=== PATIENT | female | born 1975 | race Caucasian/White ===

== ENCOUNTER 2019-03-21 05:48 | Emergency (ER) | payer SELFPAY ==
[~2019-03-21] VITALS: Ht 162.6 cm; Wt 65.9 kg
[2019-03-21 05:52] VITALS: BP 136/75; PULSE 70; RESP 16; Ht 162.6 cm; Wt 65.9 kg
[2019-03-21] MEDS ORDERED: ACETAMINOPHEN 500 MG TAB PO STA (06:49)
[2019-03-21] MEDS ORDERED: ONDANSETRON (ODT) 4 MG TAB ODT STA (06:52)
--- NOTE | 2019-03-21 06:55 | ERD ---
ER Documentation Chief Complaint Chief Complaint Upper abd pain and nausea x 2 weeks HPI Patient is a 43-year-old female with no past medical history presents the ER for concerns of abdominal pain for last 2 weeks. Patient states the pain is localized to her bilateral lower quadrants. Patient reports associated nausea and bloating. Patient denies any fevers, chills, diarrhea, vomiting, chest pain, shortness of breath, constipation or UTI symptoms. No recent travel. No sick contacts. Patient states that she has regular daily bowel movements. ROS All systems reviewed and are negative except as per history of present illness. Medications Home Meds Active Scripts Docusate Sodium* (Colace*) 100 Mg Capsule, 100 MG PO TID, #30 CAP Prov:MAEVE KELLOGG PA-C 03/21/19 Nitrofurantoin Monohyd Macrocr* (Macrobid*) 100 Mg Capsr, 100 MG PO BID for 5 Days, CAP Prov:MAEVE KELLOGG PA-C 03/21/19 Allergies Allergies: Coded Allergies: No Known Allergy (Unverified , 08/10/13) PMhx/Soc History of Surgery: Yes (C SECTION) Anesthesia Reaction: No Hx Neurological Disorder: No Hx Respiratory Disorders: No Hx Cardiac Disorders: No Hx Psychiatric Problems: No Hx Miscellaneous Medical Probl: No Hx Alcohol Use: No Hx Substance Use: No Hx Tobacco Use: No FmHx Family History: No diabetes Physical Exam Vitals Vital Signs Date Temp Pulse Resp B/P (MAP) Pulse Ox O2 O2 Flow FiO2 Time Delivery Rate 03/21/19 98.2 70 16 136/75 100 05:52 (95) Physical Exam GENERAL: Well-developed, well-nourished female. Appears in no acute distress. Speaking in full sentences. HEAD: Normocephalic, atraumatic. EYES: Pupils are equally reactive bilaterally. EOMs grossly intact. No conjunctival erythema. ENT: Moist mucous membranes. No uvula deviation. No kissing tonsils. NECK: Supple. No meningismus. Normal range of motion of the neck. LUNG: Clear to auscultation bilaterally. No rhonchi, wheezing, rales or coarse breath sounds. HEART: Regular rate and rhythm. No murmurs, rubs or gallops. ABDOMEN: Soft and nondistended. Minimally Tender to palpation in the bilateral lower quadrants. Positive bowel sounds in all four quadrants. No rebound tenderness, no guarding. (-) McBurney's point tenderness. No CVA tenderness. EXTREMITIES: Equal pulses bilaterally. No peripheral clubbing, cyanosis or roger ma. No unilateral leg swelling. NEUROLOGIC: Alert and oriented. Moving all four extremities without any difficulty. Normal speech. Steady gait. SKIN: Normal color. Warm and dry. No rashes or lesions. Result Diagram: 03/21/19 0657 03/21/19 0657 Results 24 hrs Laboratory Tests Test 03/21/19 06:57 03/21/19 06:59 White Blood Count 8.5 10^3/ul Red Blood Count 5.16 10^6/ul Hemoglobin 14.2 g/dl Hematocrit 44.7 % Mean Corpuscular Volume 86.6 fl Mean Corpuscular Hemoglobin 27.5 pg Mean Corpuscular Hemoglobin Concent 31.8 g/dl Red Cell Distribution Width 13.7 % Platelet Count 320 10^3/UL Mean Platelet Volume 10.2 fl Immature Granulocytes % 0.200 % Neutrophils % 54.2 % Lymphocytes % 35.6 % Monocytes % 7.9 % Eosinophils % 1.5 % Basophils % 0.6 % Nucleated Red Blood Cells % 0.0 /100WBC Immature Granulocytes # 0.020 10^3/ul Neutrophils # 4.6 10^3/ul Lymphocytes # 3.0 10^3/ul Monocytes # 0.7 10^3/ul Eosinophils # 0.1 10^3/ul Basophils # 0.1 10^3/ul Nucleated Red Blood Cells # 0.0 10^3/ul Urine Color YELLOW Urine Clarity CLOUDY Urine pH 6.0 Urine Specific [place] 1.006 Urine Ketones NEGATIVE mg/dL Urine Nitrite NEGATIVE mg/dL Urine Bilirubin NEGATIVE mg/dL Urine Urobilinogen NEGATIVE mg/dL Urine Leukocyte Esterase 3+ Rhys/ul Urine Microscopic RBC 8 /HPF Urine Microscopic WBC 18 /HPF Urine Squamous Epithelial Cells MANY /HPF Urine Amorphous Crystals FEW /HPF Urine Bacteria FEW /HPF Urine Hemoglobin NEGATIVE mg/dL Urine Glucose NEGATIVE mg/dL Urine Total Protein NEGATIVE mg/dl Sodium Level 142 mmol/L Potassium Level 4.4 mmol/L Chloride Level 107 mmol/L Carbon Dioxide Level 28 mmol/L Anion Gap 7 Blood Urea Nitrogen 13 mg/dl Creatinine 0.67 mg/dl Est Glomerular Filtrat Rate mL/min > 60 mL/min Glucose Level 95 mg/dl Calcium Level 9.3 mg/dl Total Bilirubin 0.7 mg/dl Direct Bilirubin 0.00 mg/dl Indirect Bilirubin 0.7 mg/dl Aspartate Amino Transf (AST/SGOT) 21 IU/L Alanine Aminotransferase (ALT/SGPT) 15 IU/L Alkaline Phosphatase 98 IU/L Total Protein 8.2 g/dl Albumin 4.4 g/dl Globulin 3.80 g/dl Albumin/Globulin Ratio 1.15 Lipase 33 U/L POC Beta HCG, Qualitative NEGATIVE Current Medications Medications Dose Sig/Daphney Start Time Status Last (Trade) Ordered Route PRN Stop Time Admin Dose Reason Admin 1,000 mg ONCE STAT 03/21/19 DC 03/21/19 Acetaminophen PO 06:49 06:59 (Tylenol 03/21/19 06:51 Tab) Ondansetron 4 mg ONCE STAT 03/21/19 DC 03/21/19 HCl (Zofran ODT 06:52 06:59 Odt) 03/21/19 06:54 Procedures/MDM MEDICAL DECISION MAKING: This is a 43-year-old female no past medical history presents the ER for concerns of lower abdominal pain associated nausea and vomiting x2 weeks. Patient denies any fevers, chills, vomiting, UTI symptoms, diarrhea. No recent travel. No sick contacts. Vital signs were reviewed. Patient was afebrile. Patient was hypoxic. Blood work was obtained. CBC showed no evidence of systemic infection or severe anemia. CMP showed no evidence of electrolyte abnormalities, severe acidosis, alkalosis, renal failure, or liver disease. Lipase showed no evidence of acute pancreatitis. UA showed no evidence of hematuria. 3+ leukocyte was noted. Patient will be treated for UTI. Urine test was negative. KUB showed Large colonic fecal burden suggesting constipation. At this time, the patient's presentation most consistent with abdominal pain, constipation, UTI and bloating. Low suspicion for acute coronary syndrome, AAA, mesenteric ischemia, lower lobe pneumonia, DKA, bowel perforation, cholecystitis, choledocholithiasis, ascending cholangitis, hepatic abscess, pancreatitis, PUD, gastritis, GERD, splenic rupture, diverticulitis, pyelonephritis, nephrolithiasis, appendicitis, , ectopic , PID, ovarian torsion or tubo-ovarian abscess. Patient was nontoxic, [id number] prior to discharge. Patient was advised she may need to follow-up with a GI specialist if she continues to have bleeding to have a colonoscopy/endoscopy. Colace, nitro PRESCRIPTIONS: Macrobid, Colace DISCHARGE: At this time, patient is stable for discharge and outpatient management. I have instructed the patient to follow-up with his/her primary care physician in 1-2 days. I have instructed the patient to promptly return to the ER at any time for any new or worsening symptoms including increased pain, nausea, vomiting, diarrhea, fever, weakness or LOC. The patient and/or family expressed understanding of and agreement with this plan. All questions were answered. Home care instructions were provided. Disclaimer: Inadvertent spelling and grammatical errors are likely due to EHR/dictation software use and do not reflect on the overall quality of patient care. Also, please note that the electronic time recorded on this note does not necessarily reflect the actual time of the patient encounter. Departure Diagnosis: Primary Impression: Bloating Additional Impressions: Abdominal pain Abdominal location: unspecified location Qualified Codes: R10.9 - Unspecified abdominal pain Constipation Constipation type: unspecified constipation type Qualified Codes: K59.00 - Constipation, unspecified UTI (urinary tract infection) Urinary tract infection type: site unspecified Hematuria presence: without hematuria Qualified Codes: N39.0 - Urinary tract infection, site not specified Condition: Fair Patient Instructions: Abdominal Pain Referrals: [facility] YOU HAVE RECEIVED A MEDICAL SCREENING EXAM AND THE RESULTS INDICATE THAT YOU DO NOT HAVE A CONDITION THAT REQUIRES URGENT TREATMENT IN THE EMERGENCY DEPARTMENT. FURTHER EVALUATION AND TREATMENT OF YOUR CONDITION CAN WAIT UNTIL YOU ARE SEEN IN YOUR DOCTORS OFFICE WITHIN THE NEXT 1-2 DAYS. IT IS YOUR RESPONSIBILITY TO MAKE AN APPOINTMENT FOR FOLOW-UP CARE. IF YOU HAVE A PRIMARY DOCTOR --you should call your primary doctor and schedule an appointment IF YOU DO NOT HAVE A PRIMARY DOCTOR YOU CAN CALL OUR PHYSICIAN REFERRAL HOTLINE AT IF YOU CAN NOT AFFORD TO SEE A PHYSICIAN YOU CAN CHOSE FROM THE FOLLOWING FORMERLY [facility] CLINICS [facility] [address] [facility] [address] [email or web address] [address] [facility] [address] [facility] [address] [facility] [facility]. [facility] [address] [facility]. [facility] YOU HAVE RECEIVED A MEDICAL SCREENING EXAM AND THE RESULTS INDICATE THAT YOU DO NOT HAVE A CONDITION THAT REQUIRES URGENT TREATMENT IN THE EMERGENCY DEPARTMENT. FURTHER EVALUATION AND TREATMENT OF YOUR CONDITION CAN WAIT UNTIL YOU ARE SEEN IN YOUR DOCTORS OFFICE WITHIN THE NEXT 1-2 DAYS. IT IS YOUR RESPONSIBILITY TO MAKE AN APPOINTMENT FOR FOLOW-UP CARE. IF YOU HAVE A PRIMARY DOCTOR --you should call your primary doctor and schedule and appointment IF YOU DO NOT HAVE A PRIMARY DOCTOR YOU CAN CALL OUR PHYSICIAN REFERRAL HOTLINE AT . IF YOU CAN NOT AFFORD TO SEE A PHYSICIAN YOU CAN CHOSE FROM THE FOLLOWING [facility] INSTITUTIONS: [facility] [address], [place] [id number] [place] [address] [address] [place], [place] [id number] [place] [address] + [facility] [address] [place] [address] Additional Instructions: Llame al doctor de GI MAANA y celsa nelly ADAN PARA DENTRO DE 1-2 SALCIDO.Dgale a la secretaria que nosotros le instruimos hacer esta adan.Avise o llame si burleson condicin se empeora antes de la adan. Regresa aqui si peor o no mejor. Necesita mas pruebas y colonscopia. MAEVE KELLOGG PA-C March 21, 2019 06:55
[2019-03-21] MEDS ORDERED: NITR-58 PO (08:14)
[2019-03-21] MEDS ORDERED: DOCU-144 PO (08:15)
== END 2019-03-21 08:21 | disposition home or self-care (01) ==
LOC: FTE 05:48
DX: K59.00 Constipation, unspecified (principal); N39.0 Urinary tract infection, site not specified
CPT/HCPCS: 36415; 74018; 80053; 81001; 81025; 83690; 85025